=== PATIENT | male | born 1955 | race Caucasian/White ===

== ENCOUNTER 2017-06-02 10:32 | Emergency (ER) | payer MEDICAID ==
[~2017-06-02 10:32] MED LIST: AMLO-511 PO; MAGN200T5 PO; MULT-1203 PO
[2017-06-02 14:15] VITALS: BP 135/86
== END 2017-06-02 15:21 | disposition home or self-care (01) ==
LOC: EMS 10:32
DX: M10.9 Gout, unspecified (principal); F17.210 Nicotine dependence, cigarettes, uncomplicated
CPT/HCPCS: 99284

== ENCOUNTER 2022-05-07 08:24 | Day surgery (SDC) | payer MEDICARE, MEDICAID ==
[2022-05-06 10:20] LABS: COVID AG,FIA SOURCE NASOPHARYNGEAL
[~2022-05-07] VITALS: Ht 170.2 cm; Wt 81.8 kg
[~2022-05-07 08:24] MED LIST changes: +ALBU8HFA IH; +ALLO-45 PO; +AMLO-257 PO; -AMLO-511 PO; +COLC0.6T73 PO; +FERR325T27 PO; +FOLI0.4T6 PO; -MAGN200T5 PO; +MIRT-89 PO; +NICO-650 TP; +OMEP20 PO; +TAMS-13 PO; +THIA100T80 PO
[2022-05-07] MEDS ORDERED: SODIUM CHLORIDE 0.9% 1,000 ML ONE (08:28)
[2022-05-07] MEDS ORDERED: SODIUM CHLORIDE 0.9% 1,000 ML IV ONE (09:00)
== END 2022-05-07 11:00 | disposition home or self-care (01) ==
LOC: SURGERY 08:24
PROVIDERS: ATTEND Internal Medicine Gastroenterology
DX: K62.5 Hemorrhage of anus and rectum (principal); Z53.8 Procedure and treatment not carried out for other reasons; Z87.01 Personal history of pneumonia (recurrent); I10 Essential (primary) hypertension; Z98.890 Other specified postprocedural states; Z88.8 Allergy status to other drugs, medicaments and biological substances; Z79.899 Other long term (current) drug therapy
CPT/HCPCS: J7030